=== PATIENT | female | born 1980 | race Caucasian/White ===

== ENCOUNTER 2016-10-30 18:35 | Emergency (ER) | payer OTHER ==
[~2016-10-30] VITALS: Ht 160 cm; Wt 74.4 kg
[~2016-10-30 18:35] MED LIST: LEVO25TA4 PO
[2016-10-30] MEDS: ONDANSETRON PF 4 MG/2 ML VIAL. IV ONE (19:45)
[2016-10-30] MEDS: IV NORMAL SALINE 1,000ML 1,000 ML IV ONE (19:45)
[2016-10-30] MEDS: FENTANYL PF 100 MCG/2 ML VIAL. IV ONE ×2 (19:45→21:25)
[2016-10-30 19:53] LABS: BASO % 0 % (0-3); EOS # 0.1 x10^3/uL (0.0-0.7); EOS % 1 % (0-3); HEMATOCRIT 39.9 % (36.0-47.0); HEMOGLOBIN 13.2 g/dL (12.0-15.5); LYMPH # 3.3 x10^3/uL (1.0-4.8); LYMPH % 27 % (24-48); MEAN CORPUSCULAR HEMOGLOBIN 27 pg (25-35); MEAN CORPUSCULAR HGB CONC 33 g/dL (31-37); MEAN CORPUSCULAR VOLUME 83 fL (79-100); MONO # 0.6 x10^3/uL (0.0-1.1); MONO % 5 % (0-9); NEUT # 8.1 x10^3uL (1.8-7.7); NEUT % 67 % (31-73); PLATELET COUNT 259 x10^3/uL (140-400); RED CELL DISTRIBUTION WIDTH 15.3 % (11.5-14.5); WHITE BLOOD COUNT 12.1 x10^3/uL (4.0-11.0)
[2016-10-30 20:14] LABS: CALCIUM 9.3 mg/dL (8.5-10.1); CREATININE 0.7 mg/dL (0.6-1.0); GFR 95.8; POTASSIUM 3.3 mmol/L (3.5-5.1)
[2016-10-30 20:43] LABS: CLARITY,URINE CLEAR; COLOR,URINE STRAW
[2016-10-30 20:44] LABS: BACTERIA,URINE 0 /HPF (0-FEW); BILIRUBIN,URINE NEG (NEG); GLUCOSE,URINE NEG (NEG); NITRITE,URINE NEG (NEG); RBC,URINE 0 /HPF (0-2); SQUAMOUS EPITHELIAL CELL,UR MOD /LPF; UROBILINOGEN,URINE 0.2 mg/dL (0.2 mg/dL)
--- NOTE | 2016-10-30 21:05 | RAD ---
PROCEDURE First trimester OB ultrasound. HISTORY Pelvic pain for 10 hours, greater on the right. TECHNIQUE Transabdominal 1st trimester OB ultrasound was performed. COMPARISON None. FINDINGS Single live intrauterine with heart tones of 169 beats per minute is noted. [place]-rump length and gestational sac size are concordant. Yolk sac is identified. [place]-rump length measurement on average is 2.69 centimeters, 9 weeks 3 days. This is concordant with clinical age of 9 weeks 3 days. VASILIY by ultrasound is June 01, 2017. There is an implantation bleed measuring 2.4 x 2.6 x 0.6 centimeters. Color flow was documented for both maternal ovaries. There is a corpus luteum cyst measuring 16 millimeters on the right. There is no free pelvic fluid. IMPRESSION - Single live intrauterine with heart tones 169 beats per minute and estimated gestational age by crown rump length 9 weeks 3 days. - Small implantation bleed, short-term follow-up suggested. Electronically signed by: Mario Burnham MD (Oct 30, 2016 21:03:52)
[2016-10-30] MEDS ORDERED: FENTANYL PF 100 MCG/2 ML VIAL. IM ONE (21:30)
[2016-10-30 21:31] VITALS: BP 110/69
--- NOTE | 2016-10-30 22:28 | ED.ADGEN ---
Past History Past Medical History: Hypothyroid Past Surgical History: No Surgical History Alcohol Use: None Drug Use: None Adult General HPI HPI Patient is a 36-year-old female presents emergency department complaining of right-sided lower abdominal pain. Patient has approximately 9 weeks . She has had an ultrasound during this confirming a uterine . She denies any vaginal bleeding or discharge. She denies any fevers, chills, nausea, vomiting. She is concerned because she has had 2 previous miscarriages. Her last live was 8 years ago. Of note, she did have a gastric sleeve procedure done 5 months ago. Review of Systems Review of Systems Constitutional: Denies fever or chills [] Eyes: Denies change in visual acuity, redness, or eye pain [] HENT: Denies nasal congestion or sore throat [] Respiratory: Denies cough or shortness of breath [] Cardiovascular: No additional information not addressed in HPI [] GI: Denies abdominal pain, nausea, vomiting, bloody stools or diarrhea [] : Denies dysuria or hematuria [] Musculoskeletal: Denies back pain or joint pain [] Integument: Denies rash or skin lesions [] Neurologic: Denies headache, focal weakness or sensory changes [] Endocrine: Denies polyuria or polydipsia [] Current Medications Current Medications Current Medications Medications (Trade) Dose Ordered Sig/Alejandro Start Time Stop Time Status Last Admin Dose Admin Fentanyl Citrate (Fentanyl 2ml Vial) 75 mcg 1X ONCE 10/30/16 21:30 10/30/16 21:31 DC 10/30/16 21:25 75 MCG Ondansetron HCl (Zofran) 4 mg 1X ONCE 10/30/16 19:45 10/30/16 19:46 DC 10/30/16 19:45 4 MG Sodium Chloride (Iv Sodium Chloride 0.9% 1,000ml) 1,000 ml @ 1,000 mls/hr 1X ONCE 10/30/16 19:45 10/30/16 20:44 DC 10/30/16 19:45 1,000 MLS/HR Allergies Allergies Allergies Coded Allergies Type Severity Reaction Last Updated Verified No Known Drug Allergies 03/19/15 No Physical Exam Physical Exam Constitutional: Well developed, well nourished, no acute distress, non-toxic appearance. [] HENT: Normocephalic, atraumatic, bilateral external ears normal, oropharynx moist, no oral exudates, nose normal. [] Eyes: PERRLA, EOMI, conjunctiva normal, no discharge. [] Neck: Normal range of motion, no tenderness, supple, no stridor. [] Cardiovascular:Heart rate regular rhythm, no murmur [] Lungs & Thorax: Bilateral breath sounds clear to auscultation [] Abdomen: Bowel sounds normal, soft, right lower quadrant and suprapubic tenderness to palpation without peritoneal signs, no masses, no pulsatile masses. [] Skin: Warm, dry, no erythema, no rash. [] Back: No tenderness, no CVA tenderness. [] Extremities: No tenderness, no cyanosis, no clubbing, ROM intact, no edema. [] Neurologic: Alert and oriented X 3, normal motor function, normal sensory function, no focal deficits noted. [] Psychologic: Affect normal, judgement normal, mood normal. [] Current Patient Data Lab Results Laboratory Tests Test 10/30/16 19:30 White Blood Count 12.1x10^3/uL (4.0-11.0) H Red Blood Count 4.80x10^6/uL (3.50-5.40) Hemoglobin 13.2g/dL (12.0-15.5) Hematocrit 39.9% (36.0-47.0) Mean Corpuscular Volume 83fL (79-100) Mean Corpuscular Hemoglobin 27pg (25-35) Mean Corpuscular Hemoglobin Concent 33g/dL (31-37) Red Cell Distribution Width 15.3% (11.5-14.5) H Platelet Count 259x10^3/uL (140-400) Neutrophils (%) (Auto) 67% (31-73) Lymphocytes (%) (Auto) 27% (24-48) Monocytes (%) (Auto) 5% (0-9) Eosinophils (%) (Auto) 1% (0-3) Basophils (%) (Auto) 0% (0-3) Neutrophils # (Auto) 8.1x10^3uL (1.8-7.7) H Lymphocytes # (Auto) 3.3x10^3/uL (1.0-4.8) Monocytes # (Auto) 0.6x10^3/uL (0.0-1.1) Eosinophils # (Auto) 0.1x10^3/uL (0.0-0.7) Basophils # (Auto) 0.0x10^3/uL (0.0-0.2) Urine Collection Type Unknown Urine Color Straw Urine Clarity Clear Urine pH 6.5 Urine Specific [place] <=1.005 Urine Protein Neg (NEG-TRACE) Urine Glucose (UA) Negmg/dL (NEG) Urine Ketones (Stick) Negmg/dL (NEG) Urine Blood Neg (NEG) Urine Nitrite Neg (NEG) Urine Bilirubin Neg (NEG) Urine Urobilinogen Dipstick 0.2mg/dL (0.2 mg/dL) Urine Leukocyte Esterase Neg (NEG) Urine RBC 0/HPF (0-2) Urine WBC 1-4/HPF (0-4) Urine Squamous Epithelial Cells Mod/LPF Urine Bacteria 0/HPF (0-FEW) Maternal Serum HCG Beta Subunit 02826pVD/mL (0-6) H Sodium Level 141mmol/L (136-145) Potassium Level 3.3mmol/L (3.5-5.1) L Chloride Level 102mmol/L (98-107) Carbon Dioxide Level 28mmol/L (21-32) Anion Gap 11 (6-14) Blood Urea Nitrogen 7mg/dL (7-20) Creatinine 0.7mg/dL (0.6-1.0) Estimated GFR (Cockcroft-Gault) 95.8 Glucose Level 89mg/dL (70-99) Calcium Level 9.3mg/dL (8.5-10.1) Aspartate Amino Transferase (AST) 8U/L (15-37) L Alanine Aminotransferase (ALT) 19U/L (14-59) Alkaline Phosphatase 63U/L (46-116) EKG EKG [] Radiology/Procedures Radiology/Procedures PROCEDURE First trimester OB ultrasound. HISTORY Pelvic pain for 10 hours, greater on the right. TECHNIQUE Transabdominal 1st trimester OB ultrasound was performed. COMPARISON None. FINDINGS Single live intrauterine with heart tones of 169 beats per minute is noted. [place]-rump length and gestational sac size are concordant. Yolk sac is identified. [place]-rump length measurement on average is 2.69 centimeters, 9 weeks 3 days. This is concordant with clinical age of 9 weeks 3 days. VASILIY by ultrasound is June 01, 2017. There is an implantation bleed measuring 2.4 x 2.6 x 0.6 centimeters. Color flow was documented for both maternal ovaries. There is a corpus luteum cyst measuring 16 millimeters on the right. There is no free pelvic fluid. IMPRESSION - Single live intrauterine with heart tones 169 beats per minute and estimated gestational age by crown rump length 9 weeks 3 days. - Small implantation bleed, short-term follow-up suggested. Electronically signed by: Mario Burnham MD (Oct 30, 2016 21:03:52) DICTATED AND SIGNED BY: MARIO BURNHAM MD DATE: 10/30/162102 CC: ANÍBAL NYE MD; AWILDA MORA ~[] Course & Med Decision Making Course & Med Decision Making Pertinent Labs and Imaging studies reviewed. (See chart for details) Overall, the patient's workup is reassuring. She does appear to have a right ovarian cyst. Fortunately, her is still intact. She has been given Macrobid for an equivocal urinary tract infection. Ultrasound are pending. She does have instructions to follow up closely with her [employer]. She will return emergency department sooner she develops any new or worsening symptoms. [] Final Impression Final Impression Ovarian cyst [] Problems: Dragon Disclaimer Dragon Disclaimer This electronic medical record was generated, in whole or in part, using a voice recognition dictation system. ANÍBAL NYE MD Oct 30, 2016 22:28
== END 2016-10-30 21:36 | disposition home or self-care (01) ==
LOC: ER 18:35
DX: O26.891 Other specified pregnancy related conditions, first trimester (principal); N83.201 Unspecified ovarian cyst, right side; E03.9 Hypothyroidism, unspecified; Z3A.09 9 weeks gestation of pregnancy
CPT/HCPCS: 36415; 76801; 80048; 81001; 84075; 84450; 84460; 84702; 85027; 96361; 96374; 96375; 96376; 99285; J2405; J3010; J7030

== ENCOUNTER 2016-12-25 07:14 | Emergency (ER) | payer OTHER ==
[2016-12-25] MEDS ORDERED: IV NORMAL SALINE 1,000ML 1,000 ML IV ONE (07:45)
[2016-12-25 08:04] LABS: BASO % 0 % (0-3); EOS # 0.1 x10^3/uL (0.0-0.7); EOS % 1 % (0-3); HEMATOCRIT 32.4 % (36.0-47.0); HEMOGLOBIN 11.3 g/dL (12.0-15.5); LYMPH # 1.9 x10^3/uL (1.0-4.8); LYMPH % 21 % (24-48); MEAN CORPUSCULAR HEMOGLOBIN 29 pg (25-35); MEAN CORPUSCULAR HGB CONC 35 g/dL (31-37); MEAN CORPUSCULAR VOLUME 84 fL (79-100); MONO # 0.5 x10^3/uL (0.0-1.1); MONO % 5 % (0-9); NEUT # 6.4 x10^3uL (1.8-7.7); NEUT % 73 % (31-73); PLATELET COUNT 232 x10^3/uL (140-400); RED BLOOD COUNT 3.89 x10^6/uL (3.50-5.40); RED CELL DISTRIBUTION WIDTH 14.2 % (11.5-14.5); WHITE BLOOD COUNT 8.9 x10^3/uL (4.0-11.0)
[2016-12-25 08:10] LABS: ALBUMIN 2.7 g/dL (3.4-5.0); ALBUMIN/GLOBULIN RATIO 0.8 (1.0-1.7); CALCIUM 8.5 mg/dL (8.5-10.1); CREATININE 0.5 mg/dL (0.6-1.0); GFR 141.2; POTASSIUM 3.5 mmol/L (3.5-5.1); TOTAL BILIRUBIN 0.3 mg/dL (0.2-1.0); TOTAL PROTEIN 6.3 g/dL (6.4-8.2)
[2016-12-25 08:20] LABS: AMORPHOUS SEDIMENT,UR PRESENT /HPF; BACTERIA,URINE FEW /HPF (0-FEW); BILIRUBIN,URINE NEG (NEG); CLARITY,URINE HAZY; COLOR,URINE YELLOW; GLUCOSE,URINE NEG (NEG); NITRITE,URINE NEG (NEG); RBC,URINE RARE /HPF (0-2); SQUAMOUS EPITHELIAL CELL,UR FEW /LPF; UROBILINOGEN,URINE 0.2 mg/dL (0.2 mg/dL); WBC,URINE RARE /HPF (0-4)
--- NOTE | 2016-12-25 09:00 | RAD ---
Obstetrical ultrasound-limited, 12/25/2016: History: Right-sided pain and spotting Transabdominal scans were obtained. There is a single intrauterine fetus present in a variable orientation. The biparietal diameter measures 3.7 cm compatible with a gestational age of 17-18 weeks. This yields a sonographic EDC of 05/31/2017. This correlates well with the EDC of 06/01/2017 established on the previous ultrasound exam of 10/30/2016. activity and heart motion are present. A full survey was not performed at this time. The placenta lies anteriorly with no evidence of a placenta previa. Myometrial thickening deep to the placenta seen initially resolved during the exam compatible with a transient uterine contraction. There is no evidence of periplacental hemorrhage. A normal amount of amniotic fluid is present. The right adnexal region was also carefully scanned. The right ovary is visualized and shows no abnormality. The appendix was not visualized. No right lower quadrant mass or abnormal fluid collection was delineated. IMPRESSION: Single viable intrauterine fetus of 17-18 weeks gestational age demonstrating normal interval growth since 10/30/2016.
[2016-12-25] MEDS ORDERED: ACETAMINOPHEN 500 MG TABLET PO ONE (09:30)
--- NOTE | 2016-12-25 09:31 | ED.ADGEN ---
Past History Past Medical History: Hypothyroid, Ovarian Cyst Past Surgical History: Cholecystectomy, Other Alcohol Use: Rarely Drug Use: Marijuana Social History Narrative: no drug use in "years" Adult General Chief Complaint Chief Complaint Abdominal pain HPI HPI Patient is a 36-year-old female who is approximately 17 weeks presents with persistent nausea for the past 2 days with vomiting earlier today, and mild diffuse lower abdominal pain. Patient describes cramping and episode of spotting when wiping earlier today. She denies dizziness lightheadedness, fever chills, flank pain, hematuria dysuria or history of kidney stones. She has had previous lower abdominal pain and related to ovarian cyst and occasional morning sickness. 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 She is not currently taking any nausea medications. Review of Systems Review of Systems ROS as per [facility] Current Medications Current Medications Current Medications Medications (Trade) Dose Ordered Sig/Alejandro Start Time Stop Time Status Last Admin Dose Admin Acetaminophen (Tylenol) 1,000 mg 1X ONCE 12/25/16 09:30 12/25/16 09:31 Sodium Chloride 1,000 ml @ 1,000 mls/hr 1X ONCE 12/25/16 07:45 12/25/16 08:45 DC 12/25/16 07:45 1,000 MLS/HR Allergies Allergies Allergies Coded Allergies Type Severity Reaction Last Updated Verified No Known Drug Allergies 03/19/15 No Physical Exam Physical Exam Constitutional: Well developed, well nourished, no acute distress, non-toxic appearance. HENT: Normocephalic, atraumatic, bilateral external ears normal, oropharynx moist, no oral exudates, nose normal. Eyes: PERRLA, EOMI. Neck: Normal range of motion, no tenderness, supple, no stridor. Cardiovascular:Heart rate regular rhythm, no murmur. Lungs & Thorax: Bilateral breath sounds clear to auscultation. Abdomen: Bowel sounds normal, soft, gravid abdomen, fundus around the level of umbilicus, diffuse lower abdominal pain without tenderness or guarding. Skin: Warm, dry. Back: No tenderness. Extremities: No tenderness. Neurologic: Alert and oriented X 3, normal motor function, normal sensory function, no focal deficits noted. Psychologic: Affect normal, judgement normal, mood normal. Current Patient Data Vital Signs Vital Signs Date Time Temp Pulse Resp B/P (MAP) Pulse Ox O2 Delivery O2 Flow Rate FiO2 12/25/16 07:15 98.4 92 18 98 Room Air Lab Results Laboratory Tests Test 12/25/16 07:30 12/25/16 07:45 Urine Collection Type Unknown Urine Color Yellow Urine Clarity Hazy Urine pH 7.0 Urine Specific [place] 1.010 Urine Protein Neg (NEG-TRACE) Urine Glucose (UA) Neg mg/dL (NEG) Urine Ketones (Stick) Neg mg/dL (NEG) Urine Blood Neg (NEG) Urine Nitrite Neg (NEG) Urine Bilirubin Neg (NEG) Urine Urobilinogen Dipstick 0.2 mg/dL (0.2 mg/dL) Urine Leukocyte Esterase Trace (NEG) Urine RBC Rare /HPF (0-2) Urine WBC Rare /HPF (0-4) Urine Squamous Epithelial Cells Few /LPF Urine Amorphous Sediment Present /HPF Urine Bacteria Few /HPF (0-FEW) Urine Mucus Slight /LPF White Blood Count 8.9 x10^3/uL (4.0-11.0) Red Blood Count 3.89 x10^6/uL (3.50-5.40) Hemoglobin 11.3 g/dL (12.0-15.5) L Hematocrit 32.4 % (36.0-47.0) L Mean Corpuscular Volume 84 fL (79-100) Mean Corpuscular Hemoglobin 29 pg (25-35) Mean Corpuscular Hemoglobin Concent 35 g/dL (31-37) Red Cell Distribution Width 14.2 % (11.5-14.5) Platelet Count 232 x10^3/uL (140-400) Neutrophils (%) (Auto) 73 % (31-73) Lymphocytes (%) (Auto) 21 % (24-48) L Monocytes (%) (Auto) 5 % (0-9) Eosinophils (%) (Auto) 1 % (0-3) Basophils (%) (Auto) 0 % (0-3) Neutrophils # (Auto) 6.4 x10^3uL (1.8-7.7) Lymphocytes # (Auto) 1.9 x10^3/uL (1.0-4.8) Monocytes # (Auto) 0.5 x10^3/uL (0.0-1.1) Eosinophils # (Auto) 0.1 x10^3/uL (0.0-0.7) Basophils # (Auto) 0.0 x10^3/uL (0.0-0.2) Sodium Level 140 mmol/L (136-145) Potassium Level 3.5 mmol/L (3.5-5.1) Chloride Level 105 mmol/L (98-107) Carbon Dioxide Level 27 mmol/L (21-32) Anion Gap 8 (6-14) Blood Urea Nitrogen 3 mg/dL (7-20) L Creatinine 0.5 mg/dL (0.6-1.0) L Estimated GFR (Cockcroft-Gault) 141.2 BUN/Creatinine Ratio 6 (6-20) Glucose Level 81 mg/dL (70-99) Calcium Level 8.5 mg/dL (8.5-10.1) Total Bilirubin 0.3 mg/dL (0.2-1.0) Aspartate Amino Transferase (AST) 8 U/L (15-37) L Alanine Aminotransferase (ALT) 15 U/L (14-59) Alkaline Phosphatase 54 U/L (46-116) Total Protein 6.3 g/dL (6.4-8.2) L Albumin 2.7 g/dL (3.4-5.0) L Albumin/Globulin Ratio 0.8 (1.0-1.7) L EKG EKG [] Radiology/Procedures Radiology/Procedures [Ultrasound: Viable 18 week IUP, uncomplicated right ovarian cyst, no fluid collection right lower quadrant] Course & Med Decision Making Course & Med Decision Making Pertinent Labs and Imaging studies reviewed. (See chart for details) [Nondescript lower abdominal pain cramping with nausea during second trimester . Patient's abdomen is soft nontender on serial exam. Ultrasound displays viable IUP but is nondiagnostic regarding the cause of abdominal pain. Likewise, lab work is nondiagnostic. Patient's pain nausea improved with tx while in the ED. Will follow expectantly with strict return precautions within 24 hours or sooner if symptoms progress. I discussed in detail about the possibility of early appendicitis is being considered, and that the patient was studies performed today are not adequate to rule in or rule out that diagnosis. Patient verbalizes understanding agreement with the need to return to the emergency department if symptoms continue. Otherwise, she is instructed to follow-up with her OB as scheduled. In the meantime, I will treat the patient's nausea] Final Impression Final Impression [1. Second trimester 2. Abdominal pain 3. Nausea] Problems: Dragon Disclaimer Dragon Disclaimer This electronic medical record was generated, in whole or in part, using a voice recognition dictation system. NELSON TOLBERT DO December 25, 2016 09:30
[2016-12-25 10:05] VITALS: BP 124/79
== END 2016-12-25 10:05 | disposition home or self-care (01) ==
LOC: ER 07:14
DX: O26.892 Other specified pregnancy related conditions, second trimester (principal); R10.84 Generalized abdominal pain; R11.0 Nausea; E03.9 Hypothyroidism, unspecified; F12.10 Cannabis abuse, uncomplicated; Z3A.18 18 weeks gestation of pregnancy
CPT/HCPCS: 36415; 76815; 80053; 81001; 85027; 87086; 96360; 96361; 99285-25; J7030

== ENCOUNTER → 2018-05-17 | Outpatient (CLI) | payer OTHER ==
--- NOTE | 2018-05-17 11:02 | RAD ---
Thyroid ultrasound 05/17/2018 CLINICAL HISTORY: Thyroid fullness. TECHNIQUE: A real-time ultrasound examination of the thyroid gland was performed. Multiple images were obtained. FINDINGS: The thyroid gland is mildly enlarged and is slightly heterogeneous. It measures 5.6 x 1.9 x 1.7 cm in longitudinal, transverse, and AP dimensions. The left lobe of the thyroid gland measures 5.2 x 1.8 x 1.7 cm in size. The isthmus measures 3 mm in thickness. . A 6 mm oval-shaped predominantly anechoic structure is seen within the inferior aspect of the left lobe of the thyroid gland which likely represents a colloid cyst. No solid nodule is seen involving the thyroid gland. IMPRESSION: Mild thyromegaly. Electronically signed by: Evgeny Nance MD (05/17/2018 10:59 AM) [id number]
== END | disposition home or self-care (01) ==
LOC: US 09:44
PROVIDERS: ATTEND Physician Assistant Medical
DX: E01.0 Iodine-deficiency related diffuse (endemic) goiter (principal)
CPT/HCPCS: 76536